=== PATIENT | male | born 1990 | race Caucasian/White ===

== ENCOUNTER 2018-06-29 08:05 | Emergency (ER) | payer OTHER, BC ==
[2018-06-29] MEDS ORDERED: Acetaminophen 325 MG Tab PO ONE (08:45)
[2018-06-29] MEDS ORDERED: Ibuprofen 800 MG Tab PO ONE (08:45)
--- NOTE | 2018-06-29 08:48 | EDM.PDOC ---
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 The dust circulating around and something on his left thigh. He has pain in his left eye. He was wearing protective lenses his last DPT indeterminate. No Past medical history history of eye trauma. Onset: Today, Sudden Duration: Constant Quality: Reports: Ache Severity: Mild Improves with: Reports: None, Other (I wash was used at work without resolution of his symptoms of left eye discomfort) Worsens with: Reports: None Associated Symptoms: Reports: No Other Symptoms - Related Data Allergies Allergy/AdvReac Type Severity Reaction Status Date / Time No Known Allergies Allergy Verified 06/29/18 08:16 Home Meds: Home Meds NK [No Known Home Meds] 06/29/18 [History] Past Medical History - Past Surgical History Male Surgical History: Reports: Vasectomy Social & Family History - Tobacco Use Smoking Status *Q: Current Every Day Smoker Years of Tobacco use: 10 Packs/Tins Daily: 1 - Caffeine Use Caffeine Use: Reports: Coffee - Recreational Drug Use Recreational Drug Use: No ED ROS ENT - Review of Systems Review Of Systems: See Below Constitutional: Reports: Other (left eye pain and blepharospasm) Respiratory: Reports: No Symptoms Cardiovascular: Reports: No Symptoms Endocrine: Reports: No Symptoms GI/Abdominal: Reports: No Symptoms : Reports: No Symptoms Musculoskeletal: Reports: No Symptoms Skin: Reports: No Symptoms Neurological: Reports: No Symptoms Psychiatric: Reports: No Symptoms Hematologic/Lymphatic: Reports: No Symptoms Immunologic: Reports: No Symptoms ED EXAM, ENT - Physical Exam Exam: See Below Text/Narrative:: This 20 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 Fluorescein stain is negative for involvement of the cornea.) Ears: Normal External Exam, Normal Canal, Hearing Grossly Normal, Normal TMs Nose: Normal Inspection, Normal Mucousa, No Blood Mouth/Throat: Normal Inspection, Normal Gums, Normal Lips, Normal Oropharynx, Normal Teeth Head: Atraumatic, Normocephalic Neck: Normal Inspection, Supple, Non-Tender, Full Range of Motion Respiratory/Chest: No Respiratory Distress, Lungs Clear, Normal Breath Sounds, No Accessory Muscle Use Cardiovascular: Normal Peripheral Pulses, Regular Rate, Rhythm, No Edema, No Gallop, No JVD, No Murmur, No Rub GI/Abdominal: Normal Bowel Sounds, Soft, Non-Tender, No Organomegaly, No Distention, No Abnormal Bruit (Male) Exam: Deferred Rectal (Males) Exam: Deferred Back: Normal Inspection Extremities: Normal Inspection Neurological: Alert, Oriented, CN II-XII Intact, Normal Cognition, Normal Gait, Normal Reflexes, No Motor/Sensory Deficits ED ENT PROCEDURES - Additional/Other Procedure(s) Other (Free Text) Procedure(s): With placement of tetracaine the left eye was examined. No evidence for foreign body on the bulbar conjunctiva or scleral involvement of the left upper lid was inverted and a small particle was easily removed. I was flushed with 200 mL fluid. Fluorescein stain no uptake. He has mild irritation from the flushing. And then one dose of gentamicin optic ointment was placed. and also given a optic lubricant which she can use 2 times a day follow-up with doctor in 24 hours to 48 hours if not improved Course - Vital Signs Last Recorded V/S: Last Vital Signs Temp 36.5 C 06/29/18 08:05 Pulse 86 06/29/18 08:05 Resp 18 06/29/18 08:05 BP 127/78 06/29/18 08:05 Pulse Ox 99 06/29/18 08:05 - Orders/Labs/Meds Meds: Medications Discontinued Medications Generic Name Dose Route Start Last Admin Trade Name Freq PRN Reason Stop Dose Admin Acetaminophen 975 mg 06/29/18 08:45 Tylenol PO 06/29/18 08:46 NOW ONE Ibuprofen 800 mg 06/29/18 08:45 Motrin PO 06/29/18 08:46 ONETIME ONE Departure - Departure Time of Disposition: 08:40 Disposition: Home, Self-Care 01 Clinical Impression: Foreign body - Discharge Information *PRESCRIPTION DRUG MONITORING PROGRAM REVIEWED*: Not Applicable *COPY OF PRESCRIPTION DRUG MONITORING REPORT IN PATIENT PERLITA: Not Applicable Instructions: Corneal Abrasion Referrals: José Miguel Mayo MD [Primary Care Provider] - Forms: ED Department Discharge Additional Instructions: you will have some pain in you eye that should go away with taking together every 6 hours 1000 mg of tylenol and 600 mg you may return to work followup with MD in 24 hours if not improved otherwise as needed in the next week
[2018-06-29] MEDS ORDERED: Diphtheria,Pertussis(Acell),Tetanus Vaccine 0.5 ML SDV IM ONE (08:56)
== END 2018-06-29 09:10 | disposition home or self-care (01) ==
LOC: FB.ED 08:05
DX: T15.12XA Foreign body in conjunctival sac, left eye, initial encounter (principal); F17.210 Nicotine dependence, cigarettes, uncomplicated; Z23 Encounter for immunization; W45.8XXA Other foreign body or object entering through skin, initial encounter
CPT/HCPCS: 90471; 90715; 99283; A9270